=== PATIENT | male | born 1940 | race Caucasian/White ===

== ENCOUNTER → 2016-10-27 | Outpatient (CLI) | payer OTHER ==
[~2016-10-27] MED LIST: TRAZODONE HCL100 MG PO
--- NOTE | ~2016-10-27 | 2DMMODE ---
[facility] [address] [place] [address] 2 D/M-MODE ECHOCARDIOGRAM Name: WILY SAXENAO Room #: REG [facility]#: [id number] Admission: 10/27/16 Attend Phys: Kevin Pillai Discharge: Date of : 42 Date of Service: 10/27/16 1448 Report #: [id number] THIS REPORT FOR: //name// APPROVED REPORT Study performed: 10/27/2016 12:38:46 EXAM: Comprehensive 2D, Doppler, and color-flow Echocardiogram Patient Location: Out-Patient Blood Pressure: 124/80 mmHg HR: 66 bpm Other Information Study Quality: Adequate Indications Chest Pain Hypertension/HDD 2D Dimensions RVDd: 39.99 mm LVEF(%): 67.14 (>50%) IVSd: 8.34 (7-11mm) LVOT Diam: 21.44 (18-24mm) LVDd: 46.52 mm PWd: 9.48 (7-11mm) Ascending Aorta: 32.06 mm LVDs: 29.23 (25-40mm) IVC: 11.00 mm Aortic Root: 32.77 mm Brown's LVEF: 67.14 % Volumes Left Atrial Volume (Systole) Single Plane 4CH: 40.92 mL Single Plane 2CH: 36.51 mL LA ESV Index: 22.00 mL/m2 Aortic Valve AoV Peak David.: 1.45 m/s AO Peak Gr.: 8.39 mmHg LV Max P.81 mmHg LV Max: 0.84 m/s Mitral Valve E/A Ratio: 1.2 MV Decel. Time: 237.19 ms MV E Max David.: 0.97 m/s MV A David.: 0.82 m/s [facility] [address] [place] [address] 2 D/M-MODE ECHOCARDIOGRAM Name: WILY SAXENA Room #: REG [facility]#: [id number] Admission: 10/27/16 Attend Phys: Kevin Pillai Discharge: Date of : 42 Date of Service: 10/27/16 1448 Report #: [id number] PHT: 68.79 ms Pulmonary Valve PV Peak David.: 1.08 m/s PV Peak Gr.: 4.63 mmHg Pulmonary Vein P Vein S: 53.0 m/s P Vein D: 44.9 m/s P Vein A Dur.: 31.8 m/s PVa Duration: 106 Tricuspid Valve TR Peak David.: 2.50 m/s RAP Estimate: 5.00 mmHg TR Peak Gr.: 24.91 mmHg Left Ventricle The left ventricle is normal size. There is normal LV segmental wall motion. There is normal left ventricular wall thickness. The left ventricular systolic function is normal. The left ventricular ejection fraction is within the normal range. LVEF is 55-60%. The left ventricular diastolic function is normal. Right Ventricle The right ventricle is normal size. The right ventricular systolic function is normal. Atria The left atrium size is normal. The right atrium size is normal. Aortic Valve The aortic valve is normal in structure. Trace aortic regurgitation. There is no aortic valvular stenosis. Mitral Valve The mitral valve is normal in structure. Mild mitral regurgitation. No evidence of mitral valve stenosis. Tricuspid Valve The tricuspid valve is normal in structure. There is mild tricuspid regurgitation. The right atrial pressure is estimated at 5 mmHg. There is no pulmonary hypertension. The estimated PAP was 30 mmHg. Pulmonic Valve The pulmonary valve is normal in structure. Trace pulmonic regurgitation. [facility] [address] [place] [address] 2 D/M-MODE ECHOCARDIOGRAM Name: SAXENAWILY ADRIAN Room #: [facility] [id number] Admission: 10/27/16 Attend Phys: Kevin Pillai Discharge: Date of : 42 Date of Service: 10/27/16 1448 Report #: [id number] Great Vessels The aortic root is normal in size. IVC is normal in size and collapses >50% with inspiration. Pericardium There is no pericardial effusion. <Conclusion> The left ventricle is normal size. LVEF is 55-60%. The aortic valve is normal in structure. Trace aortic regurgitation. The mitral valve is normal in structure. Mild mitral regurgitation. The tricuspid valve is normal in structure. There is mild tricuspid regurgitation. The right atrial pressure is estimated at 5 mmHg. There is no pulmonary hypertension. The estimated PAP was 30 mmHg. Trace pulmonic regurgitation. <ELECTRONICALLY SIGNED> By: Kevin Dan MD 10/27/16 1448 1448 1448 Kevin Dan MD /INF
== END ==
LOC: NUC 10-21 11:34
DX: I10 Essential (primary) hypertension (principal); R07.9 Chest pain, unspecified

== ENCOUNTER → 2018-11-30 | Outpatient (CLI) | payer OTHER | LOC: RAD 12:56 | DX: M16.2 Bilateral osteoarthritis resulting from hip dysplasia (principal); M25.762 Osteophyte, left knee; M76.892 Other specified enthesopathies of left lower limb, excluding foot; M17.12 Unilateral primary osteoarthritis, left knee ==

== ENCOUNTER 2019-09-28 11:01 | Emergency (ER) | payer OTHER ==
[~2019-09-28] VITALS: Ht 170.2 cm; Wt 85.3 kg
[2019-09-28 11:57] VITALS: BP 117/69
== END 2019-09-28 12:28 | disposition home or self-care (01) ==
LOC: ER 11:01
DX: J10.1 Influenza due to other identified influenza virus with other respiratory manifestations (principal); I10 Essential (primary) hypertension